=== PATIENT | female | born 1960 | race Caucasian/White ===

== ENCOUNTER 2017-05-04 17:20 | Emergency (ER) | payer MEDICAID ==
[~2017-05-04] VITALS: Ht 152.4 cm; Wt 80.0 kg
[2017-05-04 17:26] VITALS: BP 155/95
--- NOTE | 2017-05-04 17:30 | NUR ---
PT AMBULATED TO BED 2.
--- NOTE | 2017-05-04 17:35 | NUR ---
57F BIB DAUGHTER C/O ANTERIOR HEADACHE, PRESSURE, NON-RADIATING, 8/10 X YESTERDAY, WITH HIGH BLOOD PRESSURE AND NAUSEA X TODAY; PT STATES NO VOMITING OR DIARRHEA AT THIS TIME; PT AA&OX4, PERRLA, STATES NO TRAUMA OR INJURY TO SITE; PT STATES NO BLURRY VISION OR VISION CHANGES AT THIS TIME; ABDOMEN SOFT, NON-TENDER, ACTIVE BOWEL SOUNDS X 4 QUADRANTS; BL LUNG SOUNDS CLEAR, RR EVEN/UNLABORED, SKIN IS WARM/DRY/INTACT WITH EVEN AND STEADY GAIT; PT RESTING IN BED WITH HOB ELEVATED AND IN LOWEST POSITION; POSITIONED FOR COMFORT; ER MD MADE AWARE OF STATUS. WILL CONTINUE TO MONITOR.
--- NOTE | 2017-05-04 17:36 | NUR ---
ER MD DR. KNUTSON EVALUATING PT AT BEDSIDE.
[2017-05-04] MEDS ORDERED: NACL 0.9% 1,000 ML IV ONE (17:43)
[2017-05-04] MEDS ORDERED: PROCHLORPERAZINE 10 MG/2 ML VIAL IVP ONE (17:45)
[2017-05-04] MEDS ORDERED: diphenhydrAMINE 50 MG/ML VIAL IVP ONE (17:45)
--- NOTE | 2017-05-04 18:20 | NUR ---
IV removed, catheter intact and site benign. Applied folded 4x4 gauze and tape to stop bleeding. PT TOLERATED PROCEDURE WELL.
[2017-05-04 18:26] VITALS: BP 137/73
--- NOTE | 2017-05-04 18:26 | NUR ---
Patient discharged with v/s stable. Written and verbal after care instructions given and explained. Patient verbalized understanding. Ambulatory with steady gait. All questions addressed prior to discharge. Advised to follow up with PMD.
== END 2017-05-04 18:26 | disposition home or self-care (01) ==
LOC: MED 17:20
DX: R51 Headache (principal); R11.0 Nausea; Z90.710 Acquired absence of both cervix and uterus; Z90.49 Acquired absence of other specified parts of digestive tract; Z88.6 Allergy status to analgesic agent; Z88.5 Allergy status to narcotic agent
CPT/HCPCS: 96374; 96375; 99284; J0780; J1200; J7030

== ENCOUNTER 2017-05-23 17:01 | Emergency (ER) | payer MEDICAID ==
[~2017-05-23] VITALS: Ht 152.4 cm; Wt 79.8 kg
[2017-05-23 17:36] VITALS: BP 151/85
--- NOTE | 2017-05-23 17:40 | NUR ---
57 YO F BIB w/ c/o Chest pain 10/18 that radiates from the left substernal chest to the left shoulder, to the back and up to the neck, accompanied by PAINTING and nausea (PAINTING began yesterday afternoon around 1300). The chest pain began at roughly 1600. Pt hx HTN, hysterectomy, cholecystectomy, and 2 x abd hernia. PT a & O x 4. GCS 15. No s/s of acute cardiac or respiratory distress. CMS intact. Skin intact. ER MD Jacome aware of pt condition. pt needs met at this time. Will contiue to monitor.
--- NOTE | 2017-05-23 17:43 | NUR ---
Pt w/c assisted to bed 3.
--- NOTE | 2017-05-23 17:57 | NUR ---
X-Ray at bedside.
--- NOTE | 2017-05-23 18:20 | NUR ---
Lab at bedside for blood draw.
[2017-05-23 18:33] LABS: HEMATOCRIT 42.7 % (36-48); HEMOGLOBIN 14.2 g/dL (12.0-16.0); MEAN CORPUSCULAR HEMOGLOBIN 28 pg (27-31); MEAN CORPUSCULAR HGB CONC 33 g/dL (33-37); MEAN CORPUSCULAR VOLUME 85 fL (80-94); PLATELET COUNT (AUTO) 391 K/uL (140-450); RED BLOOD CELL COUNT(AUTO) 5.04 MIL/uL (4.20-5.40); RED CELL DISTRIBUTION WIDTH 13.3 % (11.6-13.7); WHITE BLOOD COUNT (AUTO) 10.3 K/uL (4.8-10.8)
[2017-05-23 18:39] LABS: APPEARANCE,URINE CLEAR (CLEAR); BILIRUBIN,URINE NEGATIVE (NEGATIVE); BLOOD, URINE NEGATIVE (NEGATIVE); COLOR,URINE YELLOW (YELLOW); LEUKOCYTE ESTERASE ,URINE NEGATIVE (NEGATIVE); NITRITE, URINE NEGATIVE (NEGATIVE); UGLUCOSE NEGATIVE (NEGATIVE)
[2017-05-23 18:51] LABS: ALBUMIN 3.8 g/dL (3.4-5.0); ANION GAP 11.9 (8-16); CARBON DIOXIDE 27.9 mmol/L (21-32); CREATININE 0.8 mg/dL (0.6-1.3); POTASSIUM 3.8 mmol/L (3.5-5.1); TOTAL BILIRUBIN 0.4 mg/dL (0.0-1.0)
[2017-05-23 18:56] LABS: PROTHROMBIN TIME 10.7 secs (10.8-13.4)
[2017-05-23 19:00] LABS: LYMPHOCYTES % (MANUAL) 15 % (20-46)
--- NOTE | 2017-05-23 19:25 | NUR ---
GOT REPORT FROM JOEY VOGEL. PT. RESTING IN BED, NO S/SX OF DISTRES AT THIS TIME.
--- NOTE | 2017-05-23 19:26 | NUR ---
Pt report given to Pin. Transfer of care at this time.
[2017-05-23 19:59] VITALS: BP 156/78
== END 2017-05-23 20:01 | disposition home or self-care (01) ==
LOC: MED 17:01
DX: R07.89 Other chest pain (principal); R11.0 Nausea; I10 Essential (primary) hypertension; Z88.5 Allergy status to narcotic agent; Z88.8 Allergy status to other drugs, medicaments and biological substances; Z90.49 Acquired absence of other specified parts of digestive tract; Z90.710 Acquired absence of both cervix and uterus
CPT/HCPCS: 36415; 71045; 80053; 81003; 84484; 85025; 85610; 93005; 99285; Q0092

== ENCOUNTER 2018-05-10 05:19 | Emergency (ER) | payer MEDICAID ==
[~2018-05-10] VITALS: Ht 152.4 cm; Wt 79.8 kg
[2018-05-10 05:27] VITALS: BP 151/80
[2018-05-10] MEDS ORDERED: NACL 0.9% 1,000 ML IV ONE (05:40)
[2018-05-10] MEDS ORDERED: MECLIZINE 25 MG TAB PO ONE (05:40)
--- NOTE | 2018-05-10 06:05 | NUR ---
BLOOD SPEC COLLECTED BY RN SEND DOWN TO LAB BY EMT.
--- NOTE | 2018-05-10 06:05 | NUR ---
PT BIB W/O DIZZINESS. PT STATES SHE WAS SLEEPING AND GOT UP TO GO TO THE BR AND "FELT WIERD, I DIDNT FEEL LIKE MYSELF". PT STATES SHE GOT DIZZY AND NAUSEOUS, DENIES FALL OR TRAUMA. PT AAOX4, SPEECH CLEAR, ARM STRENGTH STRONG AND EQUAL BL. PT STATES THE SAME TYPE OF THING HAPPENED TO HER IN 2016 AND SHE WAS DX W/ INNER EAR INFECTION. PT STATES 0/10 PAIN AT THIS TIME. -LUNG SOUND CLEAR BL. BOWEL SOUNDS ACTIVE X4 QUAD. SKIN TURGOR NON-TENTING. ROGER MUCOUS MEMBRANE. PERRLA. CAP REFIL <3. PMH: HTN RX: LISINOPRIL
--- NOTE | 2018-05-10 06:15 | NUR ---
XRAY AT BEDSIDE
[2018-05-10 06:25] LABS: BASOPHILS # (AUTO) 0.1 K/uL (0.00-0.22); EOSINOPHILS # (AUTO) 0.2 K/uL (0-0.4); EOSINOPHILS % (AUTO) 1.8 % (0.0-4.0); HEMATOCRIT 42.9 % (36-48); LYMPHOCYTES # (AUTO) 3.1 K/uL (2.5-16.5); LYMPHOCYTES % (AUTO) 31.1 % (20.5-51.1); MEAN CORPUSCULAR HEMOGLOBIN 29 pg (27-31); MEAN CORPUSCULAR HGB CONC 33 g/dL (33-37); MEAN CORPUSCULAR VOLUME 88.3 fL (80-94); MONOCYTES # (AUTO) 0.7 K/uL (0.8-1.0); MONOCYTES % (AUTO) 6.8 % (1.7-9.3); NEUTROPHILS % (AUTO) 59.3 % (42.2-75.2); PLATELET COUNT (AUTO) 381 K/uL (140-450); RED BLOOD CELL COUNT(AUTO) 4.86 MIL/uL (4.20-5.40); RED CELL DISTRIBUTION WIDTH 14.4 % (11.6-13.7); WHITE BLOOD COUNT (AUTO) 10.1 K/uL (4.8-10.8)
[2018-05-10 06:38] LABS: ANION GAP 10.9 (8-16); CARBON DIOXIDE 28.6 mmol/L (21-32); CREATININE 0.8 mg/dL (0.6-1.3); POTASSIUM 3.5 mmol/L (3.5-5.1)
[2018-05-10 06:40] LABS: PROTHROMBIN TIME 9.4 secs (10.8-13.4)
[2018-05-10 06:45] LABS: ALBUMIN 3.6 g/dL (3.4-5.0); TOTAL BILIRUBIN 0.5 mg/dL (0.0-1.0)
--- NOTE | 2018-05-10 06:49 | NUR ---
Dr. Mckay re-evaluating patient at bedside.
--- NOTE | 2018-05-10 06:55 | NUR ---
Patient discharged with v/s stable. Written and verbal after care instructions given and explained. Patient alert, oriented and verbalized understanding of instructions. Ambulatory with steady gait. All questions addressed prior to discharge. ID band removed. Patient advised to follow up with PMD. Rx of Meclizine Hydrochloride given. Patient educated on indication of medication including possible reaction and side effects. Opportunity to ask questions provided and answered.
[2018-05-10 07:07] VITALS: BP 165/88
== END 2018-05-10 06:55 | disposition home or self-care (01) ==
LOC: MED 05:19
DX: R42 Dizziness and giddiness (principal); R07.9 Chest pain, unspecified; R61 Generalized hyperhidrosis; I10 Essential (primary) hypertension; Z79.82 Long term (current) use of aspirin; Z88.5 Allergy status to narcotic agent
CPT/HCPCS: 36415; 70450; 71045; 80053; 84484; 85025; 85610; 85730; 93005; 96360; 99284; J8597

== ENCOUNTER 2018-10-08 09:50 | Inpatient (IN) | payer MEDICAID ==
[~2018-10-08] VITALS: Ht 152.4 cm; Wt 81.6 kg
[2018-10-08 09:53] VITALS: BP 136/74
[2018-10-08] MEDS ORDERED: LISI-420 PO (09:55)
--- NOTE | 2018-10-08 09:58 | NUR ---
PATIENT AMBULATED TO BED 3 AT THIS TIME.
[2018-10-08] MEDS ORDERED: CLOPIDOGREL 75 MG TAB PO ONE (10:05)
[2018-10-08] MEDS ORDERED: NACL 0.9% 1,000 ML IV ONE (10:05)
--- NOTE | 2018-10-08 10:11 | NUR ---
X-RAY AT THE BEDSIDE.
[2018-10-08] MEDS ORDERED: NITROGLYCERIN 2% 1 GM PKT TP ONE (10:15)
[2018-10-08 10:31] LABS: BASOPHILS # (AUTO) 0.1 K/uL (0.00-0.22); BASOPHILS % (AUTO) 0.9 % (0.0-2.0); EOSINOPHILS # (AUTO) 0.1 K/uL (0-0.4); EOSINOPHILS % (AUTO) 1.8 % (0.0-4.0); HEMATOCRIT 41.1 % (36-48); HEMOGLOBIN 13.7 g/dL (12.0-16.0); LYMPHOCYTES # (AUTO) 2.1 K/uL (2.5-16.5); LYMPHOCYTES % (AUTO) 24.9 % (20.5-51.1); MEAN CORPUSCULAR HEMOGLOBIN 29 pg (27-31); MEAN CORPUSCULAR HGB CONC 33 g/dL (33-37); MEAN CORPUSCULAR VOLUME 87.6 fL (80-94); MONOCYTES # (AUTO) 0.6 K/uL (0.8-1.0); MONOCYTES % (AUTO) 7.2 % (1.7-9.3); NEUTROPHILS # (AUTO) 5.4 K/uL (1.8-7.7); NEUTROPHILS % (AUTO) 65.2 % (42.2-75.2); PLATELET COUNT (AUTO) 345 K/uL (140-450); RED CELL DISTRIBUTION WIDTH 14.1 % (11.6-13.7); WHITE BLOOD COUNT (AUTO) 8.3 K/uL (4.8-10.8)
--- NOTE | 2018-10-08 10:35 | NUR ---
PT BIB SLEF WITH C/O CHEST PAIN AT THE LEFT SIDE RADIATING TO BACK. PT DENIES ANY CP AT THIS TIME. HX OF HTN AND CHOLESTEROL. ALLERGIC TO ASPIRIN, CODEINE AND HYDROCODEINE. PT CONNECTED TO THE MONITOR. IV AT RT HANND 20 G. PT IS AAOX4, HAS SLIGHT NAUSEA , DENIES ANY VOMITING, CHILLS OR FEVER. LYING DOWN IN HER BED, RESTING COMFORTABLY. SR SAW THE PT. WILL CONTINUE TO MONITOR PT.
[2018-10-08 10:51] LABS: ANION GAP 13.4 (8-16); CARBON DIOXIDE 26.4 mmol/L (21-32); CREATININE 0.7 mg/dL (0.6-1.3); POTASSIUM 3.8 mmol/L (3.5-5.1)
[2018-10-08 10:53] LABS: PROTHROMBIN TIME 9.7 secs (10.8-13.4)
[2018-10-08 10:56] LABS: ALBUMIN 3.6 g/dL (3.4-5.0); TOTAL BILIRUBIN 0.4 mg/dL (0.0-1.0)
--- NOTE | 2018-10-08 11:13 | NUR ---
PT TAKES LISINOPRIL AT HOME AND MEDICATION FOR CHOLESTEROL. PER PT, CAN BRING THE MEDS FROM HOME, AWARE.
[2018-10-08] MEDS ORDERED: METOPROLOL 25 MG TAB PO ONE (11:35)
[2018-10-08] MEDS ORDERED: KETOROLAC 30 MG/ML VIAL IVP ONE (11:35)
[2018-10-08] MEDS ORDERED: HYDROcodone/APAP 7.5/325 MG 1 TAB PO PRN (12:35)
[2018-10-08] MEDS ORDERED: MORPHINE SULFATE 2 MG/ML SYR IVP PRN (12:35)
[2018-10-08] MEDS ORDERED: DOCUSATE SODIUM 100 MG GELCAP PO PRN (12:35)
[2018-10-08] MEDS ORDERED: ONDANSETRON 4 MG/2 ML VIAL IM/IVP PRN (12:35)
[2018-10-08] MEDS ORDERED: NITROGLYCERIN 0.4 MG TAB SL PRN (12:40)
--- NOTE | 2018-10-08 13:20 | NUR ---
Patient will be admitted to care of DR. JEREZ. Admited to [facility] FLOOR. Will go to room 125 A. Belongings list completed. Report to JOEY Casey. informed her that urine needs t be collected. okay with it.
--- NOTE | 2018-10-08 13:20 | NUR ---
Pt admitted to room 125A from ER, arrived via gurney. Able to amb to bed with steady gait. Pt aaox4, no c/o discomfort upon admission. Right hand 20G IV intact with ongoing NS @ 60ml/hr. Tele monitor attached. Medical hx obtained from pt. Pt oriented to rom & unit, able to demonstrate proper use of call light. Will cont to monitor.
[2018-10-08 13:23] LABS: CHOL/HDL RATIO 3.7 (1-4.5); FREE T4 (FREE THYROXINE) 0.78 ng/dL (0.76-1.46); MAGNESIUM 1.9 mg/dL (1.8-2.4); PHOSPHORUS 2.7 mg/dL (2.5-4.9); THYROID STIMULATING HORMONE 1.86 uIU/mL (0.34-3.74)
[2018-10-08] MEDS: NACL 0.9% 1,000 ML IV SCH ×2 (13:30→20:30)
[2018-10-08] MEDS ORDERED: ALUMINUM HYD/MAG/SIMETHICONE 30 ML UDC PO SCH (16:00)
[2018-10-08] MEDS ORDERED: LIDOCAINE VISCOUS 2% 20 ML UDC PO PRN (16:00)
[2018-10-08] MEDS ORDERED: DICYCLOMINE HCL LIQUID 10 MG/5 ML UDC PO PRN (16:00)
[2018-10-08 16:37] VITALS: BP 131/72
[2018-10-08 16:46] LABS: BARBITURATE, URINE NEG. ng/ml (NEG <=200); BENZODIAZEPINE, URINE NEG. ng/mL (NEG <=200); CANNABINOID, URINE NEG. ng/mL (NEG <=50); COCAINE, URINE NEG. ng/mL (NEG <=300); OPIATE, URINE NEG. ng/mL (NEG <=2000); PHENCYCLIDINE SCREEN,URINE NEG. ng/mL (NEG <=25)
[2018-10-08 16:51] LABS: APPEARANCE,URINE CLEAR (CLEAR); BILIRUBIN,URINE NEGATIVE (NEGATIVE); BLOOD, URINE NEGATIVE (NEGATIVE); COLOR,URINE YELLOW (YELLOW); LEUKOCYTE ESTERASE ,URINE NEGATIVE (NEGATIVE); NITRITE, URINE NEGATIVE (NEGATIVE); UGLUCOSE NEGATIVE (NEGATIVE)
[2018-10-08] MEDS ORDERED: ATORVASTATIN 20 MG TAB PO SCH (17:00)
--- NOTE | 2018-10-08 17:00 | NUR ---
Pt's boyfriend arrived to visit pt, brought in pt's home med Lisinopril 20mg daily & Crestor 5mg daily. Dr Muñoz notified. Crestor tab given to pharmacist.
[2018-10-08] MEDS ORDERED: ROSU5TAB PO (17:17)
[2018-10-08] MEDS ORDERED: NON-FORMULARY ITEM (Rosuvastatin Calcium* (Crestor*) 1 TAB) PO SCH (17:20)
--- NOTE | 2018-10-08 19:06 | NUR ---
RECIEVED OPT AAOX4 , NID , IV SITE INTACT AND PATENT , PLAN OF CARE DISCUSSED AND VERBALIZE UNDERSTANDING , SIDERAIL UPX2 , BED IN LOW POSITION , CALL LIGHT WITHIN REACH ,WILL CONT. TO MONITOR , RELATIVE AT BEDSIDE .
[2018-10-08 20:00] VITALS: BP 121/72
[2018-10-08] MEDS: METOPROLOL 50 MG TAB PO SCH ×2 (20:16→21:00)
[2018-10-08] MEDS ORDERED: SIMVASTATIN 20 MG TAB PO SCH (21:00)
[2018-10-08] MEDS: ACETAMINOPHEN 325 MG TAB PO PRN (21:15)
--- NOTE | 2018-10-08 21:15 | NUR ---
PT COMPLAINING OF HEADACHE ,BP 121/72 - TYLENOL P.O GIVEN OREDERD.CALL LIGHT WITHIN REACH , WILL CONT. TO MONITOR.
--- NOTE | 2018-10-08 21:16 | NUR ---
DUE LOPRESSOR REFUSED BY THE PT . SHE SAID SHE TOOK BP PILL AT HOME BEFORE ADMISSION , - REFERRED TO [facility] FOR FURTHER EDUCATION ABOUT MEDICATION - LOPRESSOR NOT GIVEN PER [facility] ORDERED. CALL LIGHT WITHIN REACH ,WILL CONT. TO MONITOR.
[2018-10-09] VITALS: BP 120/70
--- NOTE | 2018-10-09 | NUR ---
MADE ROUNDS . RESP. EVEN AND UNLABORED , NO COMPLAIN MADE AT THIS TIME , CALL LIGHT WITHIN REACH ,.
--- NOTE | 2018-10-09 02:00 | NUR ---
PT .SLEEPING , CALL LIGHT WITHIN REACH.
[2018-10-09 04:00] VITALS: BP 119/72
--- NOTE | 2018-10-09 04:00 | NUR ---
MADE ROUNDS , V/S WNL , NID , NO COMPLAIN MADE AT THIS TIME ,CALL LIGHT WITHIN REACH
[2018-10-09 06:11] LABS: ANION GAP 11.7 (8-16); CARBON DIOXIDE 26.2 mmol/L (21-32); CREATININE 0.6 mg/dL (0.6-1.3); POTASSIUM 3.9 mmol/L (3.5-5.1)
[2018-10-09 06:22] LABS: MAGNESIUM 2.1 mg/dL (1.8-2.4); PHOSPHORUS 3.6 mg/dL (2.5-4.9)
[2018-10-09 06:36] LABS: BASOPHILS % (AUTO) 0.6 % (0.0-2.0); EOSINOPHILS # (AUTO) 0.3 K/uL (0-0.4); HEMATOCRIT 38.2 % (36-48); HEMOGLOBIN 12.8 g/dL (12.0-16.0); LYMPHOCYTES # (AUTO) 2.7 K/uL (2.5-16.5); LYMPHOCYTES % (AUTO) 32.1 % (20.5-51.1); MEAN CORPUSCULAR HEMOGLOBIN 30 pg (27-31); MEAN CORPUSCULAR HGB CONC 34 g/dL (33-37); MEAN CORPUSCULAR VOLUME 88.1 fL (80-94); MONOCYTES # (AUTO) 0.6 K/uL (0.8-1.0); NEUTROPHILS # (AUTO) 4.8 K/uL (1.8-7.7); NEUTROPHILS % (AUTO) 57.3 % (42.2-75.2); PLATELET COUNT (AUTO) 320 K/uL (140-450); RED BLOOD CELL COUNT(AUTO) 4.33 MIL/uL (4.20-5.40); RED CELL DISTRIBUTION WIDTH 13.9 % (11.6-13.7); WHITE BLOOD COUNT (AUTO) 8.4 K/uL (4.8-10.8)
--- NOTE | 2018-10-09 07:00 | NUR ---
ENDORSED TO AM SHIFT NURSE FOR CONTINUITY OF CARE -LATEST BP 111/72.
--- NOTE | 2018-10-09 07:10 | NUR ---
Received pt from night nurse JOEY Ruiz. Pt sitting in bed talking on the phone at the beginning of bedside report, but ended the call to participate in hand-off. Pt sitting in bed comfortably, no signs of visible distress noted at this time. AAOx4, breathing even and unlabored. Will continue to monitor for changes in condition.
[2018-10-09 08:00] VITALS: BP 137/72
[2018-10-09] MEDS: ASPIRIN 81 MG TAB.CHEW PO SCH (08:18)
[2018-10-09] MEDS: ACETAMINOPHEN 325 MG TAB PO PRN (08:19)
[2018-10-09] MEDS: PANTOPRAZOLE 40 MG TABEC PO SCH (08:19)
[2018-10-09] MEDS: LISINOPRIL 20 MG TAB PO SCH (08:19)
[2018-10-09] MEDS: CRESTOR 5 MG PO SCH (08:20)
--- NOTE | 2018-10-09 08:24 | NUR ---
PATIENT HAS BEEN SCREENED AND CATEGORIZED MODERATE NUTRITION RISK. PATIENT WILL BE SEEN WITHIN 3-5 DAYS OF ADMISSION. 10/11/18[address]
[2018-10-09 12:00] VITALS: BP 149/78
--- NOTE | 2018-10-09 12:47 | NUR ---
Pt sitting up in bed, eating lunch. No c/o pain or discomfort, respirations even & nonlabored in room air. Right AC IV intact with ongoing NS @ 30ml/hr. Call light within reach.
--- NOTE | 2018-10-09 14:00 | NUR ---
Dr Tyson at bedside to assess pt. Pt resting in bed, no signs of distress. Tele monitor in place. Call light within reach.
[2018-10-09 16:01] VITALS: BP 145/83
--- NOTE | 2018-10-09 19:23 | NUR ---
Handoff report given to JOEY Farnsworth. Pt sitting in bed. No signs of acute stress. Family at bedside. 20 G IV to R hand at 30 ml/hr.
--- NOTE | 2018-10-09 19:25 | NUR ---
RECEIVED BEDSIDE REPORT FROM AM SHIFT JOEY ALDRIDGE, FOR PATIENT'S CONTINUITY OF CARE. PATIENT IS AWAKE, ALERT, ORIENTED X 4, VISITORS AT BEDSIDE, IS ON CARDIAC DIET, AMBULATORY, IS ON ROOM AIR, HAS RIGHT HAND 20G WITH NORMAL SALINE AT 30ML/HR, SKIN IS INTACT. BED IS IN LOW POSITION, SIDE RAILS ARE UP, AND CALL LIGHT WITHIN REACH. EXPLAINED TO PATIENT THE ROUTINE FOR PROJECTOR OPERATOR. PATIENT VERBALIZED UNDERSTANDING. WILL MONITOR PATIENT THROUGHOUT SHIFT.
[2018-10-09 20:00] VITALS: BP 145/79
[2018-10-09] MEDS ORDERED: SIMVASTATIN 20 MG TAB PO SCH (21:00)
[2018-10-09] MEDS: METOPROLOL 25 MG TAB PO SCH (21:34)
--- NOTE | 2018-10-09 21:34 | NUR ---
ADMINISTERED SCHEDULED PO MEDICATION ORDERED. GAVE PATIENT EDUCATION REGARDING MEDS TAKING HERE AT THE HOSPITAL. WILL CONTINUE TO MONITOR PATIENT.
--- NOTE | 2018-10-09 23:50 | NUR ---
VITAL SIGNS CHECKED AND CHARTED. PATIENT DENIES ANY PAIN AT THIS TIME. HUNG ANOTHER IV NS RATE OF 30 ML/HR. WILL CONTINUE TO MONITOR PATIENT.
[2018-10-09] MEDS: NACL 0.9% 1,000 ML IV SCH (23:55)
[2018-10-10] VITALS: BP 122/55
--- NOTE | 2018-10-10 02:30 | NUR ---
MADE ROUNDS. PATIENT LYING DOWN, ASLEEP, WITH NO SIGNS OF DISTRESS.
[2018-10-10 04:00] VITALS: BP 112/60
--- NOTE | 2018-10-10 04:45 | NUR ---
VITAL SIGNS CHECKED AND CHARTED. PATIENT STATES IV SITE IS LEAKING. ASSESSED, REINFORCED, AND CHANGED DRESSING. PATIENT TOLERATED IT WELL. DENIES PAIN AT THIS TIME. WILL CONTINUE TO MONITOR.
--- NOTE | 2018-10-10 06:30 | NUR ---
PATIENT LYING DOWN ASLEEP, WITH NO SIGNS OF DISTRESS. WILL ENDORSE TO AM SHIFT RN FOR PATIENT'S CONTINUITY OF CARE.
[2018-10-10 06:39] LABS: MAGNESIUM 1.9 mg/dL (1.8-2.4); PHOSPHORUS 3.7 mg/dL (2.5-4.9)
[2018-10-10 06:40] LABS: ANION GAP 11.1 (8-16); CARBON DIOXIDE 27.7 mmol/L (21-32); CREATININE 0.7 mg/dL (0.6-1.3); POTASSIUM 3.8 mmol/L (3.5-5.1)
[2018-10-10 06:49] LABS: BASOPHILS # (AUTO) 0.1 K/uL (0.00-0.22); BASOPHILS % (AUTO) 0.6 % (0.0-2.0); EOSINOPHILS # (AUTO) 0.3 K/uL (0-0.4); EOSINOPHILS % (AUTO) 3.1 % (0.0-4.0); HEMATOCRIT 38.6 % (36-48); HEMOGLOBIN 12.7 g/dL (12.0-16.0); LYMPHOCYTES # (AUTO) 2.6 K/uL (2.5-16.5); LYMPHOCYTES % (AUTO) 25.3 % (20.5-51.1); MEAN CORPUSCULAR HEMOGLOBIN 29 pg (27-31); MEAN CORPUSCULAR HGB CONC 33 g/dL (33-37); MEAN CORPUSCULAR VOLUME 88.1 fL (80-94); MONOCYTES # (AUTO) 0.7 K/uL (0.8-1.0); MONOCYTES % (AUTO) 6.8 % (1.7-9.3); NEUTROPHILS # (AUTO) 6.6 K/uL (1.8-7.7); NEUTROPHILS % (AUTO) 64.2 % (42.2-75.2); PLATELET COUNT (AUTO) 326 K/uL (140-450); RED BLOOD CELL COUNT(AUTO) 4.39 MIL/uL (4.20-5.40); WHITE BLOOD COUNT (AUTO) 10.3 K/uL (4.8-10.8)
--- NOTE | 2018-10-10 07:01 | NUR ---
RECEIVED BEDSIDE REPORT FROM STRATEGIC PLANNING MANAGER NURSE FOR CONTINUITY OF CARE, PATIENT IS AWAKE, ALERT, ORIENTED X 4, AMBULATORY, IS ON ROOM AIR, HAS RIGHT HAND IV 20G WITH NORMAL SALINE AT 30 ML/HR, SKIN IS INTACT. BED IS IN LOW POSITION, SIDE RAILS ARE UP, AND CALL LIGHT WITHIN REACH. UPDATED BOARD. UPDATED PATIENT WITH PLAN OF CARE FOR THE DAY, PATIENT VERBALIZED UNDERSTANDING. WILL CONTINUE TO MONITOR PATIENT.
[2018-10-10 07:44] VITALS: BP 108/64
[2018-10-10] MEDS: PANTOPRAZOLE 40 MG TABEC PO SCH (08:07)
[2018-10-10] MEDS: ASPIRIN 81 MG TAB.CHEW PO SCH (08:08)
[2018-10-10] MEDS: LISINOPRIL 20 MG TAB PO SCH (08:08)
[2018-10-10] MEDS: CRESTOR 5 MG PO SCH (08:09)
[2018-10-10] MEDS: METOPROLOL 25 MG TAB PO SCH (08:09)
--- NOTE | 2018-10-10 08:10 | NUR ---
ORDERED MEDICATIONS GIVEN. PATIENT TOLERATED IT WELL. NO COMPLAINTS AT THIS TIME. PATIENT DENIES PAIN. WILL CONTINUE TO MONITOR PATIENT.
--- NOTE | 2018-10-10 10:22 | NUR ---
DR MCKENZIE IN TO SEE THE PATIENT. WILL CONTINUE TO MONITOR PATIENT.
--- NOTE | 2018-10-10 10:40 | NUR ---
CALLED THE RESIDENTS ABOUT DISCHARGE ORDER. WILL FOLLOW UP.
[2018-10-10 12:00] VITALS: BP 132/69
--- NOTE | 2018-10-10 12:20 | NUR ---
PATIENT SITTING UP IN BED EATING LUNCH, VS WNL. NO COMPLAINTS AT THIS TIME. UPDATED HER WITH STATUS OF IMPENDING DISCHARGE. SHE VERBALIZED UNDERSTANDING. WILL CONTINUE TO MONITOR PATIENT.
--- NOTE | 2018-10-10 13:45 | NUR ---
PATIENT'S OWN MEDICATION RETRIEVED FROM PHARMACY. DISCHARGE INSTRUCTIONS AND EDUCATION GIVEN TO PATIENT. PATIENT VERBALIZED UNDERSTANDING ABOUT FOLLOW UP APPOINTMENT WITH HER PCP, REFERRAL TO [facility] FOR STRESS TEST, AND TO SEEK MEDICATION ATTENTION IF ANY SIGNS OF CHEST PAIN OCCUR. PATIENT SIGNED ALL DISCHARGE PAPERWORK. PATIENT NOW CHANGED TO GET READY TO BE DISCHARGED. WAITING FOR HER TO COME.
--- NOTE | 2018-10-10 14:20 | NUR ---
IV REMOVED, IV CATHETER INTACT, MINIMAL BLEEDING NEEDED. ID BANDS CUT, TELE MONITOR REMOVED. PATIENT'S IS HERE TO TAKE HER HOME.
--- NOTE | 2018-10-10 14:25 | NUR ---
PATIENT AMBULATED OFF FLOOR WITH RN AND . PATIENT DISCHARGED HOME. PATIENT TOOK ALL HER BELONGINGS WITH HER. PATIENT IN STABLE CONDITION.
== END 2018-10-10 14:25 | disposition home or self-care (01) | DRG 243 ==
LOC: MED 09:50 → MMU 12:32
PROVIDERS: ADMIT General Practice; ATTEND General Practice
DX: K21.9 Gastro-esophageal reflux disease without esophagitis (principal); I24.9 Acute ischemic heart disease, unspecified; M94.0 Chondrocostal junction syndrome [Tietze]; E66.9 Obesity, unspecified; E78.5 Hyperlipidemia, unspecified; E78.1 Pure hyperglyceridemia; I10 Essential (primary) hypertension; Z88.6 Allergy status to analgesic agent; Z88.8 Allergy status to other drugs, medicaments and biological substances; Z83.3 Family history of diabetes mellitus; Z82.49 Family history of ischemic heart disease and other diseases of the circulatory system; Z90.710 Acquired absence of both cervix and uterus; Z90.49 Acquired absence of other specified parts of digestive tract; Z68.35 Body mass index [BMI] 35.0-35.9, adult
CPT/HCPCS: 36415; 71045; 80048; 80053; 80305; 81003; 82140; 82150; 82550; 83036; 83605; 83690; 83735; 83880; 84100; 84439; 84443; 84484; 85025; 85610; 85730; 87081; 93005; 96374; 99285; J1885; J7030; Q0092

== ENCOUNTER 2020-12-30 08:19 | Emergency (ER) | payer MEDICAID ==
[~2020-12-30] VITALS: Ht 152.4 cm; Wt 79.4 kg
[~2020-12-30 08:19] MED LIST: LISI20TA30 PO; ROSU5TAB PO
[2020-12-30 08:26] VITALS: BP 183/90
--- NOTE | 2020-12-30 08:36 | NUR ---
PT AMBULATED WITH EVEN AND STEADY GAIT TO ROOM 2 PT GIVING URINE AT THIS TIME WITH, GOWN AT BEDSIDE
--- NOTE | 2020-12-30 08:44 | NUR ---
DR NELSON AT BEDSIDE EVALUATING PT
[2020-12-30] MEDS ORDERED: ONDANSETRON 4 MG ODT PO ONE (08:50)
[2020-12-30] MEDS ORDERED: ACETAMINOPHEN 325 MG TAB PO ONE (08:50)
--- NOTE | 2020-12-30 08:58 | NUR ---
PT TAKEN TO CT VIA MAKENNA
--- NOTE | 2020-12-30 09:09 | NUR ---
pt returned back from ct into room 2
--- NOTE | 2020-12-30 09:10 | NUR ---
60 Y/O F BIB SPOUSE, C/O 5/10 DULL HEADACHE, FEVER, S/P MECHANICAL FALL. +N, DENIES V/D. C/O INJURY TO HEAD/FACE S/P FALL. NO APPARENT TRAUMA NOTED. DENIES LOC OR VISION CHANGES. PT STATES SHE DID NOT TAKE BP MEDICATION THIS MORNING, LAST DOSE WAS YESTERDAY MORNING. A0X4, ABLE TO MAKE ALL NEEDS KNOWN, DENIES CP AT THIS TIME. PMH: HTN, PARTIAL THYROIDECTOMY ALLERGY: NARCOTICS "MY PANCREAS GETS INFLAMED" HOME MED: DENIES
[2020-12-30] MEDS ORDERED: ONDA-188 SL (10:36)
[2020-12-30] MEDS ORDERED: IBUP-2213 PO (10:36)
[2020-12-30 10:44] VITALS: BP 161/87
--- NOTE | 2020-12-30 10:44 | NUR ---
Patient discharged with v/s stable. Written and verbal after care instructions given and explained. Patient alert, oriented and verbalized understanding of instructions. Ambulatory with to car. All questions addressed prior to discharge. ID band removed. Patient advised to follow up with PMD. Rx of IBUPROFEN/ONDANSETRON given. Patient educated on indication of medication including possible reaction and side effects. Opportunity to ask questions provided and answered.
== END 2020-12-30 10:44 | disposition home or self-care (01) ==
LOC: MED 08:19
DX: S06.0X9A Concussion with loss of consciousness of unspecified duration, initial encounter (principal); S00.511A Abrasion of lip, initial encounter; I10 Essential (primary) hypertension; Z79.899 Other long term (current) drug therapy; Z88.5 Allergy status to narcotic agent; X58.XXXA Exposure to other specified factors, initial encounter; Y93.89 Activity, other specified; Y92.89 Other specified places as the place of occurrence of the external cause; Y99.8 Other external cause status
CPT/HCPCS: 70450; 81002; 81025; 99284; Q0162

== ENCOUNTER 2021-09-24 16:28 | Emergency (ER) | payer MEDICAID ==
[~2021-09-24] VITALS: Ht 152.4 cm; Wt 79.4 kg
[~2021-09-24 16:28] MED LIST changes: +IBUP-2213 PO; +ONDA-188 SL
[2021-09-24 16:50] VITALS: BP 187/92
[2021-09-24 19:04] LABS: BASOPHILS # (AUTO) 0.1 K/uL (0.00-0.22); BASOPHILS % (AUTO) 1.2 % (0.0-2.0); EOSINOPHILS # (AUTO) 0.1 K/uL (0-0.4); EOSINOPHILS % (AUTO) 0.8 % (0.0-4.0); HEMATOCRIT 43.8 % (36-48); HEMOGLOBIN 14.2 g/dL (12.0-16.0); LYMPHOCYTES # (AUTO) 2.2 K/uL (2.5-16.5); LYMPHOCYTES % (AUTO) 21.2 % (20.5-51.1); MEAN CORPUSCULAR HEMOGLOBIN 29 pg (27-31); MEAN CORPUSCULAR HGB CONC 32 g/dL (33-37); MEAN CORPUSCULAR VOLUME 88.5 fL (80-94); MONOCYTES # (AUTO) 0.5 K/uL (0.8-1.0); MONOCYTES % (AUTO) 4.9 % (1.7-9.3); NEUTROPHILS # (AUTO) 7.6 K/uL (1.8-7.7); NEUTROPHILS % (AUTO) 71.9 % (42.2-75.2); PLATELET COUNT (AUTO) 402 K/uL (140-450); RED BLOOD CELL COUNT(AUTO) 4.95 MIL/uL (4.20-5.40); RED CELL DISTRIBUTION WIDTH 14.3 % (11.6-13.7); WHITE BLOOD COUNT (AUTO) 10.5 K/uL (4.8-10.8)
[2021-09-24] MEDS ORDERED: ACETAMINOPHEN EXTRA STRENGTH 500 MG TAB PO ONE (19:15)
[2021-09-24 19:42] LABS: ALBUMIN 3.9 g/dL (3.4-5.0); ANION GAP 13.9 (8-16); ASPARTATE AMINOTRANSFERASE 19 U/L (15-37); CARBON DIOXIDE 28.1 mmol/L (21-32); CHLORIDE 105 mmol/L (98-107); CREATININE 0.7 mg/dL (0.6-1.3); GFR ARICAN-AMERICAN 109 mL/min (>90); GLUCOSE 106 mg/dL (74-106); SODIUM SERUM 143 mmol/L (136-145); TOTAL BILIRUBIN 0.4 mg/dL (0.0-1.0); UREA NITROGEN, BLOOD 17 mg/dL (7-18)
--- NOTE | 2021-09-24 19:55 | NUR ---
PT TAKEN TO BED 1
[2021-09-24 20:53] VITALS: BP 146/59
== END 2021-09-24 20:51 | disposition home or self-care (01) ==
LOC: MED 16:28
DX: R00.2 Palpitations (principal); F43.0 Acute stress reaction; I10 Essential (primary) hypertension; E03.9 Hypothyroidism, unspecified; Z79.82 Long term (current) use of aspirin; Z88.5 Allergy status to narcotic agent
CPT/HCPCS: 36415; 80053; 84484; 85025; 93005; 99284